=== PATIENT | male | born 1985 | race Two or more races ===

== ENCOUNTER 2020-09-20 14:00 | Outpatient (RCR) | payer OTHER, SELFPAY | END 2020-10-25 14:35 | disposition other institution (70) | LOC: HO.PT 14:00 | PROVIDERS: Visit Provider Family Medicine | DX: M54.5 Low back pain (principal) | CPT/HCPCS: 97014; 97110; 97140; 97161 ==

== ENCOUNTER 2023-08-07 11:19 | Outpatient (REF) | payer MEDICAID, SELFPAY ==
--- NOTE | ~2023-08-07 | XR_ITS ---
EXAMINATION: XR CHEST CLINICAL INFORMATION: Cough COMPARISON: 08/01/2006 (report only) TECHNIQUE: 2 views of the chest were obtained. FINDINGS: No significant abnormality is noted involving the heart, lungs, mediastinum, bony thorax or soft tissues. XR/XR chest 2V IMPRESSION: Unremarkable examination.
== END 2023-08-07 11:20 | disposition home or self-care (01) ==
LOC: HO.XRAY 11:19
PROVIDERS: Visit Provider Nurse Practitioner Family
DX: R07.81 Pleurodynia (principal); R05.9 Cough, unspecified
CPT/HCPCS: 71046